=== PATIENT | male | born 1950 | race Caucasian/White ===

== ENCOUNTER → 2018-12-24 | Outpatient (CLI) | payer MEDICARE, OTHER ==
[~2018-12-24] MED LIST: IOPAMIDOL 370 MG/ML 200 ML INFUS..BTL INJ ONE; SODIUM CHLORIDE 0.9% 50ML 50 ML ONE
[2018-12-24 14:31] LABS: BUN/CREATININE RATIO 19 (6-25)
[2018-12-24 14:32] LABS: BLOOD UREA NITROGEN 18 mg/dL (7-26); CREATININE, SERUM 0.96 mg/dL (0.72-1.25); EST GLOMERULAR FILTRATION RATE > 60 ML/MIN (60-)
--- NOTE | 2018-12-24 15:56 | Diagnostic Imaging Report ---
EXAM: CT Abdomen WITHOUT and WITH contrast INDICATION: Follow-up bilateral adrenal nodules, some left renal cyst. COMPARISON: CT abdomen/pelvis without and with contrast dated 06/12/2016, the report is available, however the images are not available for review at the time of this dictation. The report and images are available for CT abdomen/pelvis from 10/21/2014. TECHNIQUE: Abdomen was scanned utilizing a multidetector helical scanner from the lung base to the iliac crests before and after administration of IV contrast. Coronal and sagittal reformations were obtained. Renal mass protocol was performed. Scan was performed pre-, arterial, portal venous, and delayed phases. IV CONTRAST: 100 cc Isovue-370. ORAL CONTRAST: Water RADIATION DOSE: Total DLP: 1631.4 mGy*cm Dose modulation, iterative reconstruction, and/or weight based adjustment of the mA/kV was utilized to reduce the radiation dose to as low as reasonably achievable. COMPLICATIONS: None FINDINGS: Somewhat limited evaluation secondary to streak artifact in the upper abdomen from spinal hardware. LINES and TUBES: None. LOWER THORAX: Calcified granulomas in the right lower lobe. HEPATOBILIARY: There is a 1 cm enhancing focus best seen in the portal venous phase within the left hepatic lobe, not significantly changed from CT on 10/21/2014, when it measured 1 cm. The focus is not visualized on delayed images. The finding may represent hemangioma or perfusional change. No biliary ductal dilation. Status post cholecystectomy. SPLEEN: No splenomegaly. PANCREAS: No focal masses or ductal dilatation. Partially fatty replaced. ADRENALS: Bilateral adrenal adenomas, with attenuation of approximately -5 HU on non-contrast images. The right adrenal nodule measures up to 4.2 cm and the left adrenal nodule measures up to 2 cm. The prior report from CT dated 06/12/2016 noted that the right adrenal nodule measured 4.1 cm and the left adrenal nodule measured 1.8 cm. KIDNEYS/URETERS: Somewhat limited evaluation secondary to streak artifact from adjacent hardware. Kidneys enhance symmetrically. No hydronephrosis. There is a 3.2 cm left parapelvic cyst (0 HU; series 3, image 51 and series 801 coronal images 93), previously noted to measure 3.[address] from 06/12/2016. No evidence of enhancing component or calcification. No evidence of solid mass. No evidence of urothelial lesion on delayed images. GI TRACT: Partially visualized. No abnormal distention, wall thickening, or evidence of bowel obstruction. LYMPH NODES: No lymphadenopathy. VESSELS: There is an infrarenal IVC filter with several struts extending outside the caval wall. There are two left renal arteries. PERITONEUM / RETROPERITONEUM: No free air or fluid. BONES: Multilevel laminectomy and posterior fusion fusion in the lumbar spine. No acute radiographic abnormality. SOFT TISSUES: No acute abnormality. IMPRESSION: A 3.2 cm simple appearing left parapelvic cyst without evidence of enhancing component, previously reported to have measured 3.[address] from 06/12/2016, although the images are not available for review. No evidence of solid renal mass. Bilateral benign adrenal adenomas. Signed by: Dr. Tristen Caro MD on 12/24/2018 3:53 PM
== END ==
LOC: CT 13:47
PROVIDERS: ATTEND Urology
DX: N28.1 Cyst of kidney, acquired (principal)
CPT/HCPCS: 36415; 74170; 82565; 84520; Q9967

== ENCOUNTER 2020-06-14 05:52 | Observation (INO) | payer MEDICARE, OTHER ==
[2020-06-10 10:03] LABS: BASOPHILS # (AUTO) 0.1 (0.0-0.1); BASOPHILS % 0.5 % (0.0-1.0); EOSINOPHILS # (AUTO) 0.2 (0.0-0.4); EOSINOPHILS % 2.3 % (0.0-6.0); HEMOGLOBIN 15.1 g/dL (14.0-18.0); LYMPHOCYTES # (AUTO) 1.7 (1.0-3.2); LYMPHOCYTES % 17.6 % (18.0-39.1); MEAN CORPUSCULAR HEMOGLOBIN 37.3 pg (28-32); MEAN CORPUSCULAR HGB CONC 38.7 g/dL (31-35); MEAN CORPUSCULAR VOLUME 96.3 fL (81-99); MONOCYTES # (AUTO) 0.5 (0.2-0.8); MONOCYTES % 5.6 % (4.4-11.3); NEUTROPHILS % 72.9 % (38.7-80.0); PLATELET COUNT 113 x10e3/uL (140-360); RED BLOOD COUNT 4.05 x10e6/uL (4.3-5.7); RED CELL DISTRIBUTION WIDTH 16.6 % (11.7-14.4)
[2020-06-10 10:22] LABS: ANION GAP 13.5 mmol/L (8-16); BLOOD UREA NITROGEN 15 mg/dL (7-26); BUN/CREATININE RATIO 13 (6-25); CALCIUM 9.3 mg/dL (8.4-10.2); CARBON DIOXIDE 26 mmol/L (22-29); CHLORIDE 103 mmol/L (98-107); CREATININE, SERUM 1.13 mg/dL (0.72-1.25); EST GLOMERULAR FILTRATION RATE > 60 ML/MIN (60-); GLUCOSE 246 mg/dL (74-118); POTASSIUM 4.5 mmol/L (3.5-5.1); SODIUM 138 mmol/L (136-145)
--- NOTE | 2020-06-10 11:18 | Diagnostic Imaging Report ---
Exam: CHEST 2 VIEWS Date: 06/10/2020 11:13 AM INDICATION: ^[id number] ^1010 ^PRE OP Comparison: None FINDINGS: Lines/Tubes:None Lungs:The lungs are well inflated. No focal consolidation or pulmonary edema. Bilateral nodular nipple shadows are noted. Pleura:No pleural effusion. No pneumothorax. Heart/Mediastinum:The cardiomediastinal silhouette is normal in size and contour. Bones/Soft Tissues: No acute osseous abnormality. There are mild to moderate multilevel degenerative changes of the spine. There are bridging smooth osseous syndesmophytes suggestive of diffuse idiopathic skeletal hyperostosis. Partially visualized lumbar spinal fusion changes are noted. Upper abdomen: Unremarkable. IMPRESSION: Negative for acute intrathoracic process. Signed by: Jaxon Ritchie MD on 06/10/2020 11:14 AM
[~2020-06-14] VITALS: Ht 182.9 cm; Wt 133.4 kg
[~2020-06-14 05:52] MED LIST changes: +AMBIEN5 MG PO; +AMLODIPINE BESYL5 MG PO; +ATORVASTATIN CA10 MG PO; +BUPROPION HCL100 MG PO; +CALCIUM CARBON500 MG PO; +CELEBREX100 MG PO; +DIOVAN160 MG PO; +ELIQUIS5 MG PO; +GABAPENTIN300 MG PO; -IOPAMIDOL 370 MG/ML 200 ML INFUS..BTL INJ ONE; +MAGNESIUM OXID400 MG PO; +METFORMIN HCL850 MG PO; +MORPHINE SULFAT30 M2 PO; +MYRBETRIQ25 MG PO; +OMEGA 3 1,0001 EACH PO; +OSTEO BI-FLEX1 EAC2 PO; +PROBIOTIC & AC1 EACH PO; +SKELAXIN800 MG PO; -SODIUM CHLORIDE 0.9% 50ML 50 ML ONE; +STRESS FORMULA1 EAC5 PO; +VICTOZA 2-0.6 MG/0.1 SC; +VITAMIN B122500 MCG PO; +VITAMIN C500 MG PEG; +VITAMIN D3250 MCG PO; +ZINC SULFATE220 M1 PO
[2020-06-14] MEDS ORDERED: EPINEPHRINE HCL 1:1000 1ML 1 MG/ML AMP ONE (06:38)
[2020-06-14] MEDS ORDERED: SODIUM CHLORIDE 0.9% INJ 10 ML VIAL ONE (06:38)
[2020-06-14] MEDS ORDERED: LIDOCAINE HCL (LTA) 4 ML SOLN ONE (06:48)
[2020-06-14] MEDS ORDERED: SUGAMMADEX SODIUM 200 MG/2 ML VIAL IV ONE (07:04)
[2020-06-14] MEDS ORDERED: ONDANSETRON HCL INJ 2MG/ML 2ML 2 MG/ML VIAL ONE ×2 (10:42→12:06)
[2020-06-14] MEDS ORDERED: MORPHINE SULFATE 2 MG/ML SYR 1ML ONE (10:42)
--- OUTSIDE RECORDS SUMMARY | 2020-06-14 10:45 | XMS REPORT | Clinical Summary ---
Author Author [facility] Address Unknown Phone Unavailable Care Team Providers Care Director Product Safety Name Role Phone Rehana Bryant MD PCP Allergies Not on File Medications Not on file Active Problems Not on file Social History Date Tobacco Use Types Packs/Day Years Used Never Assessed Sex Assigned at Date Recorded Not on file Last Filed Vital Signs Not on file Plan of Treatment Health Maintenance Due Date Last Done Comments COLONOSCOPY SCREENING 1998 SHINGLES VACCINES (#1) 1998 65+ PNEUMOCOCCAL VACCINE 2013 (1 of 1 - PPSV23) INFLUENZA VACCINE 03/27/2020 Results Not on fileafter 06/14/2019 Insurance Type Payer Benefit Subscriber ID Effective Phone Address Plan / Dates Group PPO AETNA AETNA PPO [id number] 1993-P OPEN resent CHOICE Medicare MEDICARE MEDICARE [id number] 2001-P PEDRO, PART A AND resent [place] Advance Directives For more information, please contact: [phone] Patient Central Supply Supervisor Explanation Type Date Recorded Advance Directives, Living Will and Medical Power of Orthopedic Nurse Practitioner
--- OUTSIDE RECORDS SUMMARY | 2020-06-14 10:45 | XMS REPORT | Continuity of Care Document ---
Author Author [facility] t Organization [facility] Address [address] [place] [address] Phone Unavailable Care Team Providers Care Helicopter Mechanic Name Role Phone Annette DIAZ, Armida Kimball PCP Patel GARDNER MD Attphys Unavailable Isaiah DIAZ, Kasi Fry Attphys JEAN GUZMAN Attphys Unavailable Problems This patient has no known problems. Allergies, Adverse Reactions, Alerts This patient has no known allergies or adverse reactions. Social History Social Habit Start Date Stop Date Quantity Comments Source Sex Assigned At [facility] Medications This patient has no known medications. Procedures This patient has no known procedures. Plan of Care Planned Activity Planned Date Details Comments Source Future Scheduled Test 2020-03-27 00:00:00 INFLUENZA VACCINE [code = INFLUENZA VACCINE] [facility] Scheduled Test 2013 00:00:00 65+ PNEUMOCOCCAL V ACCINE (1 of 1 - PPSV23) [code = 65+ PNEUMOCOCCAL VACCINE (1 of 1 - PPSV23)] [facility] Scheduled Test 1998 00:00:00 COLONOSCOPY SCREEN ING [code = COLONOSCOPY SCREENING] [facility] Scheduled Test 1998 00:00:00 SHINGLES VACCINES (#1) [code = SHINGLES VACCINES (#1)] [facility] Encounters Start Date/Time End Date/Time Encounter Type Admission Type [facility] Care Department Encounter ID Source 2020-03-04 10:13:29 2020-03-04 10:43:29 Office Visit Lisandra Colon [facility] Office Building [id number] 2019-09-07 16:02:00 2019-09-07 11:18:00 Inpatient [facility] [address] [place] [address] Results Test Description Test Time Test Comments Results Result Comments Source CHEST 2 VIEWS 2020-06-10 11:13:[facility] 1950 Sex: [place] [address] Patient Name: CHHAYA MARTINI MR #: [id number] : 1950 Age/Sex: 70/M Req #: [id number] [facility] Physician: Ordered by: KENDRA DIAZ, CARLOS MANUEL DIAZ Report #: [id number] Location: OR Room/Bed: Procedure: [id number] DX/CHEST 2 VIEWS Exam Date: 06/10/20 Exam Time: 1010 REPORT STATUS: Signed Exam: CHEST 2 VIEWS Date: 06/10/2020 11:13 AM INDICATION: [id number] 1010 PRE OP Comparison: None FINDINGS: Lines/Tubes:None Lungs:The lungs are well inflated. No focal consolidation or pulmonary edema. Bilateral nodular nipple shadows are noted. Pleura:No pleural effusion. No pneumothorax. Heart/Mediastinum:The cardiomediastinal silhouette is normal in size and contour. Bones/Soft Tissues: No acute osseous abnormality. There are mild to moderate multilevel degenerative changes of the spine. There are bridging smooth osseous syndesmophytes suggestive of diffuse idiopathic skeletal hyperostosis. Partially visualized lumbar spinal fusion changes are noted. Upper abdomen: Unremarkable. IMPRESSION: Negative for acute intrathoracic process. Signed by: Freddie Ritchie MD on 06/10/2020 11:14 AM Dictated By: FREDDIE RITCHIE MD 13 Transcribed By: MILA on 06/10/201113 COPY TO: CARLOS MANUEL GARDNER CT ABDOMEN WOW 2018-12-24 15:30:00 [place] [address] Patient Name: CHHAYA MARTINI MR #: [id number] : 1950 Age/Sex: 68/M Req #: [id number] Adm Physician: Ordered by: JEAN GUZMAN MD Report #: [id number] Location: CT Room/Bed: Procedure: [id number] CT/CT ABDOMEN WOW Exam Date: 12/24/18 Exam Time: 1501 REPORT STATUS: Signed EXAM: CT Abdomen WITHOUT and WITH contrast INDICATION: Follow-up bilateral adrenal nodules, some left renal cyst. COMPARISON: CT abdomen/pelvis without and with contrast dated 06/12/2016, the report is available, however the images are not available for review at the time of this dictation. The report and images are available for CT abdomen/pelvis from 10/21/2014. TECHNIQUE: Abdomen was scanned utilizing a multidetector helical scanner from the lung base to the iliac crests before and after administration of IV contrast. Coronal and sagittal reformations were obtained. Renal mass protocol was performed. Scan was performed pre-, arterial, portal venous, and delayed phases. IV CONTRAST: 100 cc Isovue-370. ORAL CONTRAST: Water RADIATION DOSE: Total DLP: 1631.4 mGy*cm Dose modulation, iterative reconstruction, and/or weight based adjustment of the mA/kV was utilized to reduce the radiation dose to as low as reasonably achievable. COMPLICATIONS: None FINDINGS: Somewhat limited evaluation secondary to streak artifact in the upper abdomen from spinal hardware. LINES and TUBES: None. LOWER THORAX: Calcified granulomas in the right lower lobe. HEPATOBILIARY: There is a 1 cm enhancing focus best seen in the portal venous phase within the left hepatic lobe, not significantly changed from CT on 10/21/2014, when it measured 1 cm. The focus is not visualized on delayed images. The finding may represent hemangioma or perfusional change. No biliary ductal dilation. Status post cholecystectomy. SPLEEN: No splenomegaly. PANCREAS: No focal masses or ductal dilatation. Partially fatty replaced. ADRENALS: Bilateral adrenal adenomas, with attenuation of approximately -5 HU on non-contrast images. The right adrenal nodule measures up to 4.2 cm and the left adrenal nodule measures up to 2 cm. The prior report from CT dated 06/12/2016 noted that the right adrenal nodule measured 4.1 cm and the left ad renal nodule measured 1.8 cm. KIDNEYS/URETERS: Somewhat limited evaluation secondary to streak artifact from adjacent hardware. Kidneys enhance symmetrically. No hydronephrosis. There is a 3.2 cm left parapelvic cyst (0 HU; series 3, image 51 and series 801 coronal images 93), previously noted to measure 3.[address] from 06/12/2016. No evidence of enhancing component or calcification. No evidence of solid mass. No evidence of urothelial lesion on delayed images. GI TRACT: Partially visualized. No abnormal distention, wall thickening, or evidence of bowel obstruction. LYMPH NODES: No lymphadenopathy. VESSELS: There is an infrarenal IVC filter with several struts extending outside the caval wall. There are two left renal arteries. PERITONEUM / RETROPERITONEUM: No free air or fluid. BONES: Multilevel laminectomy and posterior fusion fusion in the lumbar spine. No acute radiographic abnormality. SOFT TISSUES: No acute abnormality. IMPRESS ION: A 3.2 cm simple appearing left parapelvic cyst without evidence of enhancing component, previously reported to have measured 3.[address] from 06/12/2016, although the images are not available for review. No evidence of solid renal mass. Bilateral benign adrenal adenomas. Signed by: Dr. Stefanie Cheung MD on 12/24/2018 3:53 PM Dictated By: STEFANIE CHEUNG MD [id number] Transcribed By: MILA on 12/24/18 4720 COPY TO: JEAN GUZMAN MD
--- NOTE | 2020-06-14 10:55 | Operative Report ---
DATE OF PROCEDURE: 06/14/2020 SURGEON: Josias Flores MD PREOPERATIVE DIAGNOSIS: Chronic left parotid gland sialadenitis. POSTOPERATIVE DIAGNOSIS: Chronic left parotid gland sialadenitis. PROCEDURE: Left superficial parotidectomy with preservation of facial nerve. ASSOCIATE TECHNICIAN: Manuela Weston MD ANESTHESIA: General endotracheal tube anesthesia. SPECIMENS REMOVED: Left parotid gland. ESTIMATED BLOOD LOSS: 40 mL. COMPLICATIONS: None. INDICATIONS: The patient is a 70-year-old white male with frequent episodes of left parotid gland swelling and pain consistent with recurrent acute episodes of parotid gland sialadenitis. These infections occur every 2-3 months requiring multiple courses of antibiotics. He is status post incision and drainage of parotid gland abscesses including intraoperative I and D of the left parotid gland under general anesthesia on September 10, 2019. On examination, he has diffusely enlarged and scarred parotid glands, worse on the left than the right. He is scheduled for left superficial (possible total) parotidectomy with preservation of facial nerve using nerve integrity monitor (NIM) for the treatment of chronic left parotid gland sialadenitis. Risks and complications of the procedure were thoroughly discussed with the patient and his and they include infection, bleeding, scarring, failure to improve, persistent recurrent parotid gland infections, need for further surgery, damage to the facial nerve resulting in facial nerve paralysis, collection of saliva underneath the skin flaps resulting in chronic drainage, numbness of the earlobe, sweating of the face when eating, poor cosmetic external appearance of the neck, chronic pain, need for blood transfusions, damage to surrounding nerves, blood vessels, and muscles. They fully understand and gave consent. DESCRIPTION OF PROCEDURE: The patient was taken to the operating room and placed supine on the operating table. General anesthesia was achieved through orotracheal intubation. The paralysis had worn off by the time first incision was made. Ancef antibiotics were administered intraoperatively. Injection with 10 mL of 1:100,000 epinephrine without lidocaine was injected into the planned left parotidectomy incision site as well as the left anterior parotidectomy skin flap. The face was then prepped and draped in usual sterile fashion with the left face visible underneath a clear sticky drape. The parotidectomy incision was then made with a 15 blade involving the vertical portion in the left preauricular area extending inferiorly past the earlobe curving posteriorly and then turning anteriorly along a natural skin crease two fingerbreadths inferior to the margin of the mandible. The anterior and posterior skin flaps were then elevated. The dissection was then started inferiorly at the anterior border of the sternocleidomastoid muscle. This was then dissected superiorly until a wide trough was obtained. Dissection 1 cm inferior and medial to the tragal pointer identified the main trunk of the facial nerve. This was then dissected anteriorly as it branched into the superior and inferior trunks and into subsequent separate nerve branches. The nerve integrity monitor (NIM) probe was used to aid in this identification and dissection. In the course of dissecting the branches of the facial nerve, the left parotid gland was removed. The vast majority of the gland was removed in this fashion without the need for lifting the facial nerve branches (total parotidectomy). Any remaining parotid tissue was then removed separately while keeping the facial nerve branches in full visualization at all times and in this way, the left parotid gland was removed and sent for permanent section analysis. Single stimulation of the main trunk of the facial nerve stimulated the upper and lower face. Valsalva maneuver revealed no evidence of bleeding. Thorough irrigation was then performed. A separate RAJINDER drain was then inserted and brought out through a separate stab incision. The wound was then repaired with interrupted 4-0 Monocryl in a subcuticular fashion followed by Dermabond. The patient was awakened in the operating room, extubated, and taken to the recovery room in good condition. The patient's facial nerve function was seen to be normal on the left side for the both the upper and lower face in the recovery room. Josias lFores MD JKY/MODL /[id number] MALDONADO
[2020-06-14] MEDS ORDERED: MEPERIDINE HCL INJ 25 MG/ML VIAL ONE (10:58)
--- NOTE | 2020-06-14 11:16 | NUR ---
Received patient from PACU via stretcher. AAOX4 to time, person, place, situation. Respirations even and unlabored. RAJINDER drain to left neck draining sanguineous drainage. Oriented patient to room.Patient states " I use can at home" Offered walker, but patient refuses assistive device. Educated on safety precautions. Instructed to use call light for assistance. Side rails upx2, call light within reach.
[2020-06-14 11:45] VITALS: BP 126/79
[2020-06-14] MEDS ORDERED: SUCCINYLCHOLINE CHLORIDE 20 MG/ML 10ML VIAL ONE (12:06)
[2020-06-14] MEDS ORDERED: SEVOFLURANE INHAL SOLN 250 ML PEN BTL ONE (12:06)
[2020-06-14] MEDS ORDERED: DEXAMETHASONE SOD PHOS INJ 4 MG/ML VIAL ONE (12:06)
[2020-06-14] MEDS ORDERED: LIDOCAINE HCL 2% LOCAL INJ 5 ML SDV VIAL INJ ONE (12:06)
[2020-06-14] MEDS ORDERED: LIDOCAINE HCL 2% JELLY 5 ML TUBE ONE (12:06)
[2020-06-14] MEDS ORDERED: PROPOFOL IV EMULSION 10 MG/ML 20 ML VIAL ONE (12:06)
[2020-06-14] MEDS ORDERED: DEXTROSE 50% SYRINGE 50 ML IV PRN (12:15)
[2020-06-14 12:19] VITALS: BP 126/79
[2020-06-14] MEDS ORDERED: iron PO (12:22)
[2020-06-14] MEDS ORDERED: zinc PO (12:22)
[2020-06-14] MEDS ORDERED: DHA PO (12:22)
[2020-06-14] MEDS ORDERED: turmeric curcumin PO (12:22)
[2020-06-14] MEDS: INSULIN REGULAR, HUMAN 100 UNIT/1 ML 3ML VIAL SQ SCH ×3 (12:30→21:00)
[2020-06-14] MEDS ORDERED: FENTANYL CITRATE/PF 100MCG/2 ML INJ ONE (12:48)
[2020-06-14] MEDS: ACETAMINOPHEN 325 MG TAB PO PRN ×2 (12:55→18:42)
[2020-06-14] MEDS ORDERED: INFLUENZA VIRUS VAC SPLIT INJ 0.5 ML SYR IM SCH (14:00)
[2020-06-14] MEDS: CELECOXIB 100 MG CAP PO SCH (16:13)
[2020-06-14] MEDS: METFORMIN HCL 850 MG TAB PO SCH (16:14)
[2020-06-14] MEDS: METAXALONE 800 MG TAB PO SCH (16:14)
[2020-06-14] MEDS: MORPHINE SULFATE 15MG TAB CR PO SCH (16:14)
[2020-06-14] MEDS: GABAPENTIN 300 MG CAP PO SCH (16:14)
[2020-06-14 17:38] VITALS: BP 125/74
--- NOTE | 2020-06-14 19:28 | NUR ---
Report given to oncoming nurse of patient's status. Resting in bed. No s/s of acute distress noted. Side rails upx2, call light within reach.
[2020-06-14 20:00] VITALS: BP 119/62
[2020-06-14] MEDS ORDERED: ATORVASTATIN 10 MG TAB PO SCH (21:00)
[2020-06-14] MEDS ORDERED: ZOLPIDEM TARTRATE 5 MG TAB PO SCH (21:00)
[2020-06-14] MEDS ORDERED: LACTOBACILLUS ACIDOPHILUS CAPSULE PO SCH (21:00)
[2020-06-14] MEDS ORDERED: TURMERIC CURCUMIN PO SCH (21:00)
[2020-06-14] MEDS ORDERED: DHA PO SCH (21:00)
[2020-06-14] MEDS ORDERED: ZINC PO SCH (21:00)
[2020-06-15 00:12] VITALS: BP 110/65
[2020-06-15 05:22] VITALS: BP 111/59
--- NOTE | 2020-06-15 06:40 | NUR ---
SBAR BEDSIDE REPORT RECEIVED FROM PM SHIFT RN. PATIENT FOUND LYING IN BED IN NO ACUTE DISTRESS. PATIENT AAOX4 AND DENIES FURTHER NEEDS. PATIENT WAS EDUCATED ON FALL RISK PRECAUTIONS AND VERBALIZED UNDERSTANDING. CALL LIGHT AND BELONGINGS WERE PLACED NEARBY. WILL CONTINUE TO MONITOR.
[2020-06-15] MEDS: INSULIN REGULAR, HUMAN 100 UNIT/1 ML 3ML VIAL SQ SCH (07:30)
[2020-06-15 07:44] VITALS: BP 153/80
[2020-06-15 08:00] VITALS: BP 153/80
[2020-06-15] MEDS: METFORMIN HCL 850 MG TAB PO SCH (08:00)
[2020-06-15] MEDS: ACETAMINOPHEN 325 MG TAB PO PRN (08:15)
[2020-06-15] MEDS: CELECOXIB 100 MG CAP PO SCH (08:20)
[2020-06-15] MEDS: MORPHINE SULFATE 15MG TAB CR PO SCH (08:21)
[2020-06-15] MEDS: GABAPENTIN 300 MG CAP PO SCH (08:21)
[2020-06-15] MEDS: METAXALONE 800 MG TAB PO SCH (08:22)
[2020-06-15] MEDS ORDERED: OMEGA 3 POLYUNSAT FATTY ACIDS 1000 MG SOFTGEL PO SCH (09:00)
[2020-06-15] MEDS ORDERED: [UNRECOGNIZED DRUG - OTHER] PO SCH (09:00)
[2020-06-15] MEDS ORDERED: CHOLECALCIFEROL PO SCH (09:00)
[2020-06-15] MEDS ORDERED: MAGNESIUM OXIDE 400 MG TAB PO SCH (09:00)
[2020-06-15] MEDS ORDERED: CHOLECALCIFEROL 1,000 UNIT TAB PO SCH (09:00)
[2020-06-15] MEDS ORDERED: CYANOCOBALAMIN 1,000 MCG TAB PO SCH (09:00)
[2020-06-15] MEDS ORDERED: BUPROPION HCL 100 MG TAB PO SCH (09:00)
[2020-06-15] MEDS ORDERED: VALSARTAN 160 MG TAB PO SCH (09:00)
[2020-06-15] MEDS ORDERED: OYST-CAL-D 500MG TABLET PO SCH (09:00)
[2020-06-15] MEDS ORDERED: GLUCOSAMINE PO SCH (09:00)
[2020-06-15] MEDS ORDERED: NON-FORMULARY MEDICATION (Cholecalciferol (Vitamin D3) (Vitamin D3) 2,000 INTLU) PO SCH (09:00)
[2020-06-15] MEDS ORDERED: (Mirabegron (Myrbetriq) 25 MG) PO SCH (09:00)
[2020-06-15] MEDS ORDERED: CYANOCOBALAMIN 2000 MCG PO SCH (09:00)
[2020-06-15] MEDS ORDERED: AMLODIPINE BESYLATE 5 MG TAB PO SCH (09:00)
[2020-06-15] MEDS ORDERED: (Liraglutide (Victoza 2-Pak) 1.8 MG) SC SCH (09:00)
--- NOTE | 2020-06-15 09:34 | NUR ---
PATIENT DISCHARGED HOME VIA PRIVATE VEHICLE. PERIPHERAL IV WAS DISCONTINUED WITHOUT RESISTANCE;CATHETER TIP INTACT. DRY DRESSING APPLIED. PATIENT RECEIVED DISCHARGE PAPERWORK AND EDUCATION MATERIALS. PATIENT VERBALIZED UNDERSTANDING. PATIENT TOOK PAPERWORK BUT REFUSED TO TAKE TRANSISTION OF CARE FOLDER.
== END 2020-06-15 09:34 | disposition home or self-care (01) ==
LOC: OR 05:52 → PACU V 10:41 → MED/SURG 11:24
PROVIDERS: ADMIT Otolaryngology; ATTEND Otolaryngology
DX: K11.23 Chronic sialoadenitis (principal); E11.9 Type 2 diabetes mellitus without complications; G47.33 Obstructive sleep apnea (adult) (pediatric); I10 Essential (primary) hypertension; E78.5 Hyperlipidemia, unspecified; I25.10 Atherosclerotic heart disease of native coronary artery without angina pectoris; Z11.59 Encounter for screening for other viral diseases
CPT/HCPCS: 36415 ×2; 42415; 71046; 80048; 82948; 85025; 88307; 93005; G0378 ×2; J0171; J0330; J1100; J1817; J2001 ×2; J2175; J2270; J2405; J2704; J3010; U0002; 88304

== ENCOUNTER → 2025-02-06 | Outpatient (REF) | payer MEDICARE ==
[~2025-02-06] MED LIST changes: +DHA PO; +iron PO; +turmeric curcumin PO; +zinc PO
== END ==
LOC: US 13:28
PROVIDERS: ATTEND Urology
DX: N43.40 Spermatocele of epididymis, unspecified (principal)
CPT/HCPCS: 76870; 93976